=== PATIENT | female | born 1955 | race Caucasian/White ===

== ENCOUNTER → 2021-01-20 | Day surgery (SDC) | payer OTHER ==
[~2021-01-20] MED LIST: CHILDREN'S ASPI81 M1 PO; LIPITOR10 MG PO; NORCO5 PO; NOXIFOL-D32500 UNIT PO; OLMSRTN-AMLDPN1 EACH PO; PROTONIX40 M2 PO
--- NOTE | ~2021-01-20 | OP ---
[address] [address] OPERATIVE REPORT Name: MICHAEL BAER Room: [facility].#: [id number] Admission: 01/20/21 Attend Phys: Tolu Harper II Discharge: Date of : 59 Report #: [id number] THIS REPORT FOR: cc: FAM - No family physician/PCP FAM - No family physician/PCP Tolu Harper II DO ~ DOC #: [id number] Tolu Harper II, DO DATE OF SURGERY: 01/20/2021 PREOPERATIVE DIAGNOSIS: Right knee lateral meniscus tear. POSTOPERATIVE DIAGNOSES: 1. Lateral meniscus tear. 2. Grade 3 chondromalacia of patellofemoral groove. 3. 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 PROCEDURE PERFORMED: 1. Right knee arthroscopic surgery with partial lateral meniscectomy. 2. Abrasion chondroplasty of patellofemoral groove down to bleeding bone. 3. Abrasion chondroplasty, lateral femoral condyle down to bleeding bone. SURGEON: Tolu Harper II, DO REFLEXOLOGIST: None. ANESTHESIA: Per operative record ESTIMATED BLOOD LOSS: Minimal. TOURNIQUET TIME: Per operative record. DRAINS: None. COMPLICATIONS: None. CONDITION OF THE PATIENT: Stable to recovery room. OPERATIVE PROCEDURE: The patient was taken to the operative suite and placed supine on the operating table and given appropriate anesthesia. The patient's right lower extremity was sterilely prepped and draped with a well-padded arthroscopic dumont. Surgery begin by midline portal incision. The arthroscope was advanced in the joint. There was grade 3 chondromalacia to the patellofemoral groove. Utilizing a shaver, abrasion chondroplasty was performed down to bleeding bone and smoothed using Coblation wand. There was found to be grade 3 chondromalacia to the lateral femoral condyle. Utilizing a shaver, [place] [address] OPERATIVE REPORT Name: MICHAEL BAER Room: [facility]#: [id number] Admission: 01/20/21 Attend Phys: Tolu Harper II Discharge: Date of : 59 Report #: [id number] abrasion chondroplasty was performed down to bleeding bone and smoothed with Coblation wand. Lateral meniscus was probed and found to have a tear to the posterior margin extending down to the lateral margin. Utilizing a basket and shaver, partial meniscectomy was performed and then smoothed with Coblation wand. The medial meniscus was grossly intact. ACL and PCL were intact. Final irrigation was then performed. The knee was drained of arthroscopic fluid, closed with 4-0 nylon in simple fashion. Dermabond and sterile dressing was applied. The patient transported to recovery in stable condition. Counts correct x 2. Tolu Harper II, DO [facility] [place] By: [id number] Harper II, DO /nt
== END | disposition home or self-care (01) ==
LOC: M.SUR 05:28
PROVIDERS: ATTEND Orthopaedic Surgery
DX: M25.561 Pain in right knee (principal); S83.271A Complex tear of lateral meniscus, current injury, right knee, initial encounter; M94.261 Chondromalacia, right knee; M25.461 Effusion, right knee; I10 Essential (primary) hypertension; E78.5 Hyperlipidemia, unspecified; K21.9 Gastro-esophageal reflux disease without esophagitis; Z98.890 Other specified postprocedural states; Z79.899 Other long term (current) drug therapy; Z68.41 Body mass index [BMI] 40.0-44.9, adult; X58.XXXA Exposure to other specified factors, initial encounter; Y93.89 Activity, other specified; Y92.89 Other specified places as the place of occurrence of the external cause; Y99.8 Other external cause status